=== PATIENT | female | born 2000 | race Two or more races ===

== ENCOUNTER 2024-07-21 13:31 | Inpatient (IN) | payer OTHER, MEDICAID ==
[~2024-07-21] VITALS: Ht 287 cm; Wt 53.1 kg
[2024-07-21] MEDS: ONDANSETRON HCL 4MG/2ML INJ IV ONE (14:53)
[2024-07-21] MEDS: MORPHINE SULFATE 4 MG/ML INJ (FOR IV/IM USE) IV ONE (14:53)
[2024-07-21] MEDS: LACTATED RINGERS 1,000 ML IV SCH (15:24)
[2024-07-21 15:39] LABS: BASOPHILS % 0.3 % (0.0-2.0); HEMATOCRIT. 39.4 % (36.0-48.0); HEMOGLOBIN. 12.9 g/dL (12.0-16.0); LYMPHOCYTES % 8.4 % (20.0-50.0); MEAN CORPUSCULAR HEMOGLOBIN 26.4 pg (28.0-32.0); MEAN CORPUSCULAR HGB CONC 32.8 g/dL (31.0-37.0); MEAN CORPUSCULAR VOLUME 80.6 fL (81.0-99.0); MEAN PLATELET VOLUME 8.5 fl (7.4-10.4); MONOCYTES % 3.7 % (2.0-8.0); NEUTROPHILS % 87.6 % (40.0-76.0); PLATELET 350 x1000/uL (130-400); RED BLOOD CELL COUNT 4.89 mill/uL (4.2-5.4); RED CELL DISTRIBUTION WIDTH 14.2 % (11.6-14.6); WHITE BLOOD COUNT 9.6 x1000/uL (4.5-11.0)
[2024-07-21 15:50] LABS: CARBON DIOXIDE 24 mEq/L (21-32); CHLORIDE 103 mEq/L (98-107); POTASSIUM 3.2 mEq/L (3.5-5.1); SODIUM 138 mEq/L (136-145)
[2024-07-21 15:51] LABS: CALCIUM 9.6 mg/dL (8.7-10.4)
[2024-07-21 15:55] LABS: CREATININE 0.9 mg/dL (0.6-1.0)
[2024-07-21 15:56] LABS: GLUCOSE 120 mg/dL (70-105); UREA NITROGEN BLOOD 15 mg/dL (9-23)
[2024-07-21 15:57] LABS: ALANINE AMINOTRANSFERASE 16 IU/L (10-49); ALBUMIN 4.7 g/dL (3.2-4.8); ASPARTATE AMINOTRANSFERASE 21 IU/L (<34); HCG SCREEN NEGATIVE
[2024-07-21 15:58] LABS: BILIRUBIN DIRECT 0.2 mg/dL (<=3.0); BILIRUBIN TOTAL 0.6 mg/dL (0.1-1.0)
[2024-07-21] MEDS: KETOROLAC 15MG/ML VIAL IV ONE (16:46)
[2024-07-21] MEDS ORDERED: IPRATROPIUM/ALBUTEROL 0.5-3(2.5)MG/3ML NEB HHN PRN (20:15)
[2024-07-21] MEDS ORDERED: GUAIFENESIN 200MG/10ML SUGAR FREE UDC PO PRN (20:15)
[2024-07-21] MEDS ORDERED: MAGNESIUM/ALUMINUM HYDROXIDE/SIMETHICONE 30ML UDC PO PRN (20:15)
[2024-07-21] MEDS ORDERED: ACETAMINOPHEN 325MG TABLET PO PRN (20:15)
[2024-07-21] MEDS ORDERED: CLONIDINE 0.1MG TABLET PO PRN (20:15)
[2024-07-21] MEDS: SODIUM CHLORIDE 0.9% 1,000 ML IV SCH (20:42)
[2024-07-21] MEDS: KETOROLAC 15MG/ML VIAL IV PRN (21:36)
[2024-07-21] MEDS: ONDANSETRON HCL 4MG/2ML INJ IV PRN (21:37)
[2024-07-21] MEDS: POTASSIUM CHLORIDE 40 MEQ in DEXT 5% WATER 230 ML IV NR (21:46)
[2024-07-21 23:12] LABS: *AMPHETAMINES SCREEN URINE NEGATIVE (NEGATIVE); *BARBITURATES SCREEN URINE NEGATIVE (NEGATIVE); *BENZODIAZEPINES SCREEN URINE NEGATIVE (NEGATIVE); *COCAINE SCREEN URINE NEGATIVE (NEGATIVE); CANNABINOID URINE SCREEN PRESUMPTIVE POSITIVE (NEGATIVE); ECSTASY MDMA SCREEN URINE NEGATIVE (NEGATIVE); METHADONE URINE SCREEN NEGATIVE (NEGATIVE); OPIATES URINE SCREEN NEGATIVE (NEGATIVE); PHENCYCLIDINE URINE SCREEN NEGATIVE (NEGATIVE)
[2024-07-21 23:54] VITALS: BP 128/82; PULSE 62; RESP 16; TEMP 36.6; O2SAT 98
[2024-07-21 23:56] VITALS: BP 128/82; PULSE 62; RESP 16; TEMP 36.6
[2024-07-22] MEDS: ACETAMINOPHEN 325MG TABLET PO PRN (01:50)
[2024-07-22] MEDS: ONDANSETRON HCL 4MG/2ML INJ IV NR (02:28)
[2024-07-22] MEDS: KETOROLAC 15MG/ML VIAL IV NR (02:40)
[2024-07-22] MEDS ORDERED: METOCLOPRAMIDE HCL 10MG/2ML VIAL IV NR (03:00)
[2024-07-22 03:21] LABS: CLARITY URINE CLEAR (CLEAR); COLOR URINE YELLOW (YELLOW); GLUCOSE URINE NEGATIVE (NEGATIVE); KETONES URINE 1+ (NEGATIVE); LEUKOCYTE ESTERASE URINE NEGATIVE (NEGATIVE); NITRITE URINE NEGATIVE (NEGATIVE); OCCULT BLOOD URINE NEGATIVE (NEGATIVE); PH URINE 7.5 (4.5-8.0); PROTEIN URINE NEGATIVE (NEGATIVE); SPECIFIC GRAVITY URINE 1.016 (1.005-1.030); UROBILINOGEN URINE 0.2 E.U./dL (0.2-1.0)
[2024-07-22 03:22] LABS: BASOPHILS % 0.2 % (0.0-2.0); DIFFERENTIAL COMMENT 0; EOSINOPHILS % 0.2 % (0.0-5.0); HEMATOCRIT. 33.2 % (36.0-48.0); HEMOGLOBIN. 11.3 g/dL (12.0-16.0); LYMPHOCYTES % 15.5 % (20.0-50.0); MEAN CORPUSCULAR HEMOGLOBIN 26.7 pg (28.0-32.0); MEAN CORPUSCULAR VOLUME 78.4 fL (81.0-99.0); MONOCYTES % 8.9 % (2.0-8.0); NEUTROPHILS % 75.2 % (40.0-76.0); PLATELET 286 x1000/uL (130-400); RED BLOOD CELL COUNT 4.24 mill/uL (4.2-5.4); RED CELL DISTRIBUTION WIDTH 14.3 % (11.6-14.6); WHITE BLOOD COUNT 12.4 x1000/uL (4.5-11.0)
[2024-07-22 03:34] LABS: CHLORIDE 107 mEq/L (98-107); POTASSIUM 3.3 mEq/L (3.5-5.1); SODIUM 142 mEq/L (136-145)
[2024-07-22 03:35] LABS: CALCIUM 7.9 mg/dL (8.7-10.4); CARBON DIOXIDE 26 mEq/L (21-32)
[2024-07-22 03:40] LABS: CREATININE 0.6 mg/dL (0.6-1.0); GLUCOSE 102 mg/dL (70-105); UREA NITROGEN BLOOD 7 mg/dL (9-23)
[2024-07-22 03:45] LABS: THYROID STIMULATING HORMONE 0.56 uIU/mL (0.55-4.78)
[2024-07-22 04:00] VITALS: BP 111/64; PULSE 69; RESP 19; TEMP 36.8; O2SAT 100
[2024-07-22] MEDS: SUCRALFATE 1G TABLET PO SCH (07:20)
[2024-07-22 08:00] VITALS: BP 90/51; PULSE 67; RESP 19; TEMP 36.4; O2SAT 99
[2024-07-22] MEDS: PANTOPRAZOLE SODIUM 40 MG/VIAL IV SCH (09:00)
[2024-07-22] MEDS: KETOROLAC 15MG/ML VIAL IV PRN (09:22)
[2024-07-22] MEDS ORDERED: DEXTROSE 50% WATER 50ML SYRINGE IV PRN (09:45)
[2024-07-22] MEDS: POTASSIUM CHLORIDE 20MEQ TABLET SR PO SCH (09:45)
[2024-07-22] MEDS: POTASSIUM PHOSPHATE 15 MMOL in SODIUM CHLORIDE 0.9% 245 ML IV SCH (11:00)
[2024-07-22] MEDS: MAGNESIUM 2 G PREMIX 50 ML IV SCH (11:15)
[2024-07-22] MEDS: BLOOD SUGAR DIAGNOSTIC STRIP TEST SCH (11:22)
[2024-07-22 12:00] VITALS: BP 141/81; PULSE 54; RESP 20; TEMP 36.4; O2SAT 99
[2024-07-22 16:00] VITALS: BP 124/75; PULSE 63; RESP 20; TEMP 36.3; O2SAT 99
[2024-07-22] MEDS: CEFTRIAXONE 1GM/50ML 50 ML IV SCH (16:00)
[2024-07-22] MEDS ORDERED: HYDRALAZINE 10 MG in SODIUM CHLORIDE 0.9% 49.5 ML IV PRN (16:30)
[2024-07-22] MEDS ORDERED: HYDRALAZINE 20MG/ML VIAL IV PRN (16:30)
[2024-07-22] MEDS: FAMOTIDINE 20MG/2ML VIAL IV NR (16:47)
[2024-07-22] MEDS: LACTULOSE 20G/30ML UDC PO NR (16:47)
[2024-07-22] MEDS: DOCUSATE SODIUM 100MG CAPSULE PO PRN (16:49)
[2024-07-22 17:47] LABS: CHLORIDE 102 mEq/L (98-107); POTASSIUM 3.1 mEq/L (3.5-5.1); SODIUM 137 mEq/L (136-145)
[2024-07-22 17:48] LABS: CALCIUM 8.7 mg/dL (8.7-10.4); CARBON DIOXIDE 27 mEq/L (21-32)
[2024-07-22 17:52] LABS: TRIGLYCERIDE 88 mg/dL (0-150)
[2024-07-22 17:53] LABS: CREATINE KINASE MB FRACTION 0.7 ng/mL (0.5-3.6); CREATININE 0.8 mg/dL (0.6-1.0); GLUCOSE 86 mg/dL (70-105); LDL CHOLESTEROL 71 mg/dL (5-100); TROPONIN I HIGH SENSITIVITY 9 ng/L (3.0-34); UREA NITROGEN BLOOD 6 mg/dL (9-23)
[2024-07-22 17:54] LABS: CHOLESTEROL 131 mg/dL (<200); CREATINE KINASE 225 IU/L (34-145); HDL CHOLESTEROL 42 mg/dL (>65)
[2024-07-22 17:57] LABS: T4 FREE 1.42 ng/dL (0.89-1.76)
[2024-07-22] MEDS: METRONIDAZOLE 500 MG PREMIX 100 ML IV SCH (18:00)
[2024-07-22] MEDS ORDERED: CAPSAICIN 0.075% CREAM 57GM TOP PRN (18:00)
[2024-07-22 20:00] VITALS: BP 126/87; PULSE 66; RESP 19; TEMP 37; O2SAT 100
[2024-07-22] MEDS: POTASSIUM CHLORIDE 20MEQ TABLET SR PO NR (20:38)
[2024-07-23] VITALS: BP 120/80; PULSE 65; RESP 20; TEMP 36.8; O2SAT 100
[2024-07-23] MEDS: KETOROLAC 15MG/ML VIAL IV NR (03:48)
[2024-07-23 04:00] VITALS: BP 112/72; PULSE 61; RESP 20; TEMP 36.3; O2SAT 100
[2024-07-23 07:42] LABS: BASOPHILS % 0.5 % (0.0-2.0); DIFFERENTIAL COMMENT 0; EOSINOPHILS % 0.3 % (0.0-5.0); HEMATOCRIT. 35.2 % (36.0-48.0); HEMOGLOBIN. 11.9 g/dL (12.0-16.0); LYMPHOCYTES % 21.4 % (20.0-50.0); MEAN CORPUSCULAR HEMOGLOBIN 26.7 pg (28.0-32.0); MEAN CORPUSCULAR VOLUME 78.5 fL (81.0-99.0); MEAN PLATELET VOLUME 8.3 fl (7.4-10.4); NEUTROPHILS % 68.8 % (40.0-76.0); PLATELET 308 x1000/uL (130-400); RED BLOOD CELL COUNT 4.48 mill/uL (4.2-5.4); RED CELL DISTRIBUTION WIDTH 13.9 % (11.6-14.6); WHITE BLOOD COUNT 9.3 x1000/uL (4.5-11.0)
[2024-07-23 07:44] LABS: CHLORIDE 102 mEq/L (98-107); POTASSIUM 3.1 mEq/L (3.5-5.1); SODIUM 137 mEq/L (136-145)
[2024-07-23 07:46] LABS: CALCIUM 8.3 mg/dL (8.7-10.4); CARBON DIOXIDE 24 mEq/L (21-32)
[2024-07-23 07:51] LABS: CREATININE 0.6 mg/dL (0.6-1.0); GLUCOSE 95 mg/dL (70-105); UREA NITROGEN BLOOD 6 mg/dL (9-23)
[2024-07-23] MEDS ORDERED: SUCR1TAB PO (07:55)
[2024-07-23] MEDS ORDERED: PANT20TA17 MT (07:55)
[2024-07-23] MEDS ORDERED: ONDA4TAB50 MT (07:55)
[2024-07-23] MEDS ORDERED: TOPUD PO (07:55)
[2024-07-23] MEDS ORDERED: LACT1CAP77 PO (07:55)
[2024-07-23 08:00] VITALS: BP 140/84; PULSE 52; RESP 17; TEMP 36.9; O2SAT 98
[2024-07-23] MEDS: LACTOBACILLUS GG CAPSULE PO SCH (09:25)
[2024-07-23 09:50] VITALS: BP 124/62; PULSE 74; TEMP 97.2; O2SAT 100
[2024-07-23] MEDS ORDERED: POTASSIUM CHLORIDE 20MEQ TABLET SR PO ONE (12:30)
== END 2024-07-23 12:10 | disposition home or self-care (01) | DRG 392 ==
LOC: ER 13:31 → 6EST 16:53 → CANBEDREQ 18:27
PROVIDERS: ADMIT Hospitalist; ATTEND Hospitalist
DX: K52.9 Noninfective gastroenteritis and colitis, unspecified (principal); E87.6 Hypokalemia; R59.1 Generalized enlarged lymph nodes; D50.9 Iron deficiency anemia, unspecified; F12.90 Cannabis use, unspecified, uncomplicated; E83.39 Other disorders of phosphorus metabolism; E83.42 Hypomagnesemia; R00.1 Bradycardia, unspecified
CPT/HCPCS: 36415; 71045; 74176; 80048; 80061; 80076; 80305; 81003; 82010; 82550; 82553; 83036; 83605; 83735; 84100; 84145; 84439; 84443; 84484; 84703; 85025; 93005; 99285; J0696; J1885; J2270; J2405; J2470; J3475; J3480; J3490; J7050; J7060